=== PATIENT | female | born 1995 | race Caucasian/White ===

== ENCOUNTER → 2022-05-18 14:04 | Outpatient (CLI) | payer OTHER, SELFPAY | PROVIDERS: PCP Family Medicine; Visit Provider Emergency Medicine | DX: Z20.822 Contact with and (suspected) exposure to COVID-19 (principal) | CPT/HCPCS: C9803; U0003; U0005 ==

== ENCOUNTER 2022-07-20 18:24 | Emergency (ER) | payer OTHER, SELFPAY ==
[2022-07-20 18:24] VITALS: BP 106/73; PULSE 94; RESP 20; TEMP 36.7; O2SAT 100; BMI 24.9
[2022-07-20 18:48] VITALS: BMI 24.9
--- NOTE | 2022-07-20 18:49 | XR_ITS ---
PROCEDURE INFORMATION: Exam: XR Chest Exam date and time: 07/20/2022 7:09 PM Age: 27 years old Clinical indication: Condition or disease; Patient HX: Drug overdose. ; Additional info: Od TECHNIQUE: Imaging protocol: Radiologic exam of the chest. Views: 1 view. Portable AP supine exam 7:12 p.m. COMPARISON: No relevant prior studies available. FINDINGS: Tubes, catheters and devices: Overlying residential monitor electrodes. Lungs: Mild hypoventilation/low lung volumes on this exam, with mild infrahilar bronchovascular crowding. No focal consolidation. Pulmonary vessels do not appear congested. Pleural spaces: Unremarkable. No significant pleural effusion. No pneumothorax. Heart/Mediastinum: The cardiac silhouette is normal. Bones/joints: There is no evidence of acute fracture. IMPRESSION: 1. Mild hypoventilation/low lung volumes. 2. No focal consolidation or vascular congestion.
--- NOTE | 2022-07-20 18:53 | PC.NURSE ---
PT STATES SHE WAS TRYING TO KILL HERSELF (LEFT A NOTE) SHE FOUND OUT HER BOYFRIEND HAS A BEING WITH ANOTHER GIRL , SHE SAID IT WOULD BE EASIER TO JUST . SHE STATES SHE TOOK LORAZEPAM 1 MG TOOK X10 PILLS , REMERON 15MG TOOK X3 PILLS SHE TOOK THEM AT 1615. CALLED AND SPOKE WITH SHEREE AT [facility] CONTR[facility] SHE SAID NO TREATMENT EXCEPT FOR SYMPTOMS THAT OCCUR WATCH FOR H/A, HYPOTENSION, TACHY ,LONG QT, POLISHING PAD MOUNTER DEPRESSION . PT NEEDS TO BE WATCHED UNTIL 1230AM . SHE WILL KEEP IN CONTACT THROUGH THE NIGHT
--- NOTE | 2022-07-20 19:08 | ECG_ITS ---
APPROVED REPORT Exam: Resting ECG HR:90 bpm ECG Measurements Heart Rate 90 AXES ND 167 P 68 QRSd 89 QRS 72 QT 363 T 60 QTc 411 Conclusion SINUS RHYTHM NORMAL ECG UNCONFIRMED REPORT Electronically signed by : Favio Aly MD 07/21/2022 21:16:56
[2022-07-20 19:17] LABS: Basophils # 0.1 K/mm3 (0-0.2); Basophils % 0.6 % (0.1-2.0); Eosinophils % 0.3 % (0.1-12.0); Hematocrit 45.9 % (37.0-47.0); Lymphocytes # 1.9 K/mm3 (0.7-4.5); Mean Corpuscular HGB Conc 32.7 g/dL (31.8-35.4); Mean Corpuscular Hemoglobin 27.9 pg (27.0-31.2); Mean Corpuscular Volume 85.1 fl (81-99); Mean Platelet Volume 8.9 fl (7.4-10.4); Monocytes # 0.4 K/mm3 (0.1-1.0); Monocytes % 4.2 % (1.7-9.3); Neutrophils # 6.7 K/mm3 (1.8-7.8); Platelet Count 375 K/mm3 (142-424); Red Blood Count 5.39 M/mm3 (4.20-5.40); Red Cell Distribution Width 14.3 % (11.5-17.5)
[2022-07-20 19:23] LABS: Chloride 102 mmol/L (98-107); Sodium 142 mmol/L (136-145)
[2022-07-20 19:24] LABS: Potassium 4.1 mmoL/L (3.5-5.1)
[2022-07-20 19:26] LABS: Alanine Aminotransferase 38 U/L (12-78); Alkaline Phosphatase 132 U/L (38-126); Anion Gap 20.1 mEq/L (5-15); Aspartate Amino Transferase 39 U/L (14-36); Bilirubin,Total 0.3 mg/dl (0.2-1.3); Blood Urea Nitrogen 3 mg/dl (7-17); Carbon Dioxide 24 mmol/L (22.0-30.0); Creatinine Clearance Estimated 123 mL/min (50-200); Estimated Glomerular Filt Rate 99 ml/min (>60); GFR (African American) 120 ML/MIN (>60); Glucose 82 mg/dl (74-100)
[2022-07-20 19:27] LABS: Albumin/Globulin Ratio 1.2 (1.1-1.8); Globulin 4.2 g/dL (1.3-3.2); Total Protein,Serum 9.2 g/dl (6.3-8.2)
[2022-07-20 19:35] LABS: Acetaminophen < 10 ug/ml (10-30); Salicylate < 1.0 mg/dL (2.0-20.0)
[2022-07-20 19:53] LABS: Urine Pregnancy, HCG Qual. Negative (Negative)
[2022-07-20 19:54] LABS: Amphetamine/Metha Screen,Urine Negative ng/ml (<1000); Barbiturates Screen,Urine Negative ng/ml (<200)
[2022-07-20 19:55] LABS: Benzodiazepines Screen,Urine Negative ng/ml (<200)
[2022-07-20 19:56] LABS: Cannabinoid Screen,Urine Negative ng/ml (<50); Cocaine Screen,Urine Negative ng/ml (<300)
[2022-07-20 19:57] LABS: Methadone Screen,Urine Negative ng/ml (<300)
[2022-07-20 19:58] LABS: Opiate Screen,Urine Negative ng/ml (<300); Phencyclidine Screen,Urine Negative ng/ml (<25)
[2022-07-20 20:29] LABS: Microscopic, Urine URINE MICROSCOPIC (MICROSCOPIC)
[2022-07-20 20:41] LABS: Appearance,Urine CLEAR (Clear); Bilirubin,Urine Negative (Negative); Blood, Urine Negative (Negative); Color,Urine YELLOW (Yellow); Glucose,Urine (UA) Negative (Negative); Ketones,Urine Negative (Negative); Leukocyte Esterase,Urine Negative (Negative); Nitrate,Urine Negative (Negative); PH,Urine 6.5 (5.0-8.5); Protein,Urine Negative (Negative); Urobilinogen,Urine 0.2 EU/dl (0.2)
--- NOTE | 2022-07-20 20:41 | PC.NURSE ---
s/w [facility], gave update on labs and EKG
[2022-07-20 20:56] LABS: Ethyl Alcohol < 10 mg/dl (0-10)
[2022-07-20 21:10] LABS: Bacteria,Urine Trace /lpf; Sperm,Urine OCC /lpf; WBC,Urine Occasional #/hpf (0-3)
[2022-07-20 21:11] LABS: Yeast,Urine Occasional /lpf
--- NOTE | 2022-07-20 21:52 | PC.NURSE ---
F/C REMOVED BY USHA RN,700ML CLEAR YELLOW URINE
--- NOTE | 2022-07-20 22:19 | HMH.EDOD ---
Discharge Plan Disposition Patient Disposition: Home, Self-Care Condition: Good Prescriptions Prescriptions: No Action polyethylene glycol 3350 17 gram/dose powder 17 g PO Label Comments: DISSOLVE 17 GM (1 CAPFUL) IN 4-8 OZ OF LIQUID ONCE DAILY NEEDED albuterol sulfate 90 mcg/actuation HFA aerosol inhaler 2 puff INHALATION Q4-6H PRN hydroxyzine HCl 25 mg tablet 25 mg PO HS PRN lorazepam 1 mg tablet 1 mg PO HS PRN (Reason: anxiety) Qty: 30 2RF Rx Instructions: use sparingly when possible mirtazapine [Remeron] 15 mg tablet 15 mg PO DAILY Qty: 90 3RF penicillin V potassium 500 mg tablet 500 mg PO TID Qty: 30 0RF Referrals Follow up/Referrals: Ryan Bojorquez MD [Primary Care Provider] - See instructions Clinical Impressions Clinical Impression: Depression, Intentional overdose Instructions Patient Instructions: DI for Drug Overdose in Adults Discharge ED Provider: Davis Guerrero Overdose HPI General Chief Complaint: Overdose Stated Complaint: overdose Time Seen by Provider: 07/20/22 20:30 Mode of Arrival: EMS Source of Information: Patient, EMS and Medical Record Limitations: No Limitations Description of Symptoms (Recalled from ER Triage Doc. by RN): c/o suicide attempt by taking her prescribed antidepressants (lorazapam 10mg x10 and mirtazapine 15mg x3 ) today around 4pm. Pt states that her boyfriend was cheating on her and she thought it would be better to than to deal with an affair. A family memeber found pt and called EMS. History of Present Illness HPI Narrative: pt upset and took meds as noted above - pt with feeling depressed about boyfriend - complaint: intentional overdose Onset (ago): hour(s) Timing confirmed by: family member Intent: suicide attempt How Overdose Was Discovered: left note and family/friend present at time Context: Intentional Overdose: relationship problems Treatments Prior to Arrival: none Related Data Home Medications Medication Instructions Recorded Confirmed albuterol sulfate 90 mcg/actuation 2 puff inhalation Q4-6H PRN 05/31/21 04/08/22 aerosol inhaler polyethylene glycol 3350 17 17 g PO 05/31/21 04/08/22 gram/dose oral powder hydroxyzine HCl 25 mg tablet 25 mg PO HS PRN 04/08/22 04/08/22 Previous Rx's Medication Instructions Recorded lorazepam 1 mg tablet 1 mg PO HS PRN anxiety #30 tabs 04/08/22 mirtazapine 15 mg tablet (Remeron) 15 mg PO DAILY #90 tabs 04/08/22 penicillin V potassium 500 mg 500 mg PO TID #30 tabs 04/08/22 tablet Allergies Allergy/AdvReac Type Severity Reaction Status Date / Time NSAIDS (Non-Steroidal AdvReac Verified 04/08/22 14:04 Anti-Inflamma PFSH PFSH Social History Smoking Status: Current every day smoker tobacco type: cigarettes alcohol intake: never substance use type: denies use current occupational status: employed Travel in the last 8 weeks: None ROS Obtained: Yes All systems reviewed & no additional complaints except as documented Physical Exam General General appearance: alert Head Head exam: normocephalic Eye Eye exam: Present PERRL and EOMI ENT ENT exam: Present mucous membranes moist Neck Neck exam: Present trachea midline Respiratory Respiratory exam: Present normal lung sounds bilaterally; Absent respiratory distress Cardiovascular Cardiovascular exam: Present regular rate Abdominal Exam Abdominal exam: Present soft Extremities Exam Extremities exam: Present full ROM Neurological Exam Neurological exam: Present alert, oriented X3 and CN II-XII intact Psychiatric Psychiatric exam: Present anxious; Absent suicidal ideation Skin Skin exam: Absent rash Medical Decision Making Medical Records Medical records reviewed: Yes I reviewed the patient's medical records. Dionisio Inquiry Pt receiving controlled substance: No Vital Signs: 07/20/22 18:24 07/21/22 00:10 Temperature 98.1 F 98 F Temperature Source Oral Or
[2022-07-21 00:10] VITALS: BP 110/75; PULSE 88; RESP 18; TEMP 36.6; O2SAT 99
== END 2022-07-21 00:10 | disposition home or self-care (01) ==
PROVIDERS: Emergency Medicine; Emergency Provider Emergency Medicine; PCP Family Medicine
DX: T42.4X2A Poisoning by benzodiazepines, intentional self-harm, initial encounter (principal); R45.851 Suicidal ideations; F41.9 Anxiety disorder, unspecified; F17.210 Nicotine dependence, cigarettes, uncomplicated; Z79.51 Long term (current) use of inhaled steroids; Z88.6 Allergy status to analgesic agent
CPT/HCPCS: 51702; 71045; 80053; 80305; 80329; 81001; 81025; 83735; 85025; 93005; 96360; 99285

== ENCOUNTER → 2022-09-05 10:00 | Outpatient (CLI) | payer OTHER, SELFPAY ==
[2022-09-05 13:19] LABS: Coronavirus 19, PCR Not Detected (NotDetected); Influenza A, PCR Not Detected (NotDetected); Influenza B, PCR Not Detected (NotDetected)
== END ==
PROVIDERS: PCP Family Medicine; Visit Provider Family Medicine
DX: R05.9 Cough, unspecified (principal)
CPT/HCPCS: C9803; U0003; U0005

== ENCOUNTER 2022-09-23 21:39 | Emergency (ER) | payer OTHER, SELFPAY ==
[2022-09-23 21:40] VITALS: BP 148/75; PULSE 92; RESP 19; TEMP 36.4; O2SAT 100; BMI 27.4
--- NOTE | 2022-09-23 21:53 | CT_ITS ---
PROCEDURE INFORMATION: Exam: CT Abdomen And Pelvis With Contrast Exam date and time: 09/23/2022 10:19 PM Age: 27 years old Clinical indication: Abdominal pain TECHNIQUE: Imaging protocol: Computed tomography of the abdomen and pelvis with contrast. Radiation optimization: All CT scans at this facility use at least one of these dose optimization techniques: automated exposure control; mA and/or kV adjustment per patient size (includes targeted exams where dose is matched to clinical indication); or iterative reconstruction. Contrast material: ISOVUE; Contrast volume: 75 ml; Contrast route: IV; COMPARISON: CR XR CHEST PORTABLE 07/20/2022 7:09 PM FINDINGS: Lungs: No acute finding. Liver: Normal. No mass. Gallbladder and bile ducts: The gallbladder is contracted. There is no biliary ductal dilation. Pancreas: Normal. No ductal dilation. Spleen: There are numerous subcentimeter hypodensities within the spleen which are too small to characterize. Adrenal glands: Normal. No mass. Kidneys and ureters: Normal. No hydronephrosis. Stomach and bowel: Unremarkable. No obstruction. No mucosal thickening. Appendix: No evidence of appendicitis. Intraperitoneal space: Unremarkable. No free air. No significant fluid collection. Vasculature: There are prominent para uterine veins bilaterally with prominence of both ovarian veins. These findings can be seen in pelvic congestion syndrome. Lymph nodes: Unremarkable. No enlarged lymph nodes. Urinary bladder: Unremarkable as visualized. Reproductive: See Vasculature finding. Bones/joints: Unremarkable. No acute fracture. Soft tissues: A small fat containing umbilical hernia is noted. IMPRESSION: 1. There is no acute process within the abdomen or pelvis. 2. Prominent bilateral parauterine and ovarian veins. The findings can be seen in pelvic congestion syndrome. 3. Numerous subcentimeter splenic hypodensities which are indeterminate. For patients without or with history of cancer, recommend follow-up MRI in 6-12 months. Reference: White Paper: Managing Incidental Findings on Abdominal/Pelvic CT/MRI, Part 3: Splenic and Manoj Findings, JACR, July 2013. 4. Other findings as detailed.
[2022-09-23 21:56] LABS: Microscopic, Urine URINE MICROSCOPIC (MICROSCOPIC)
[2022-09-23 21:59] LABS: Appearance,Urine CLEAR (Clear); Bilirubin,Urine Negative (Negative); Blood, Urine Negative (Negative); Color,Urine YELLOW (Yellow); Glucose,Urine (UA) Negative (Negative); Ketones,Urine TRACE (Negative); Leukocyte Esterase,Urine Negative (Negative); Nitrate,Urine Negative (Negative); Protein,Urine Negative (Negative); Specific Gravity, Urine >= 1.030 (1.005-1.030); Urobilinogen,Urine 0.2 EU/dl (0.2)
[2022-09-23 22:02] LABS: Urine Pregnancy, HCG Qual. Negative (Negative)
[2022-09-23 22:03] LABS: Basophils % 0.4 % (0.1-2.0); Eosinophils # 0.1 K/mm3 (0.0-0.4); Eosinophils % 2.4 % (0.1-12.0); Hematocrit 39.2 % (37.0-47.0); Lymphocytes # 1.4 K/mm3 (0.7-4.5); Mean Corpuscular HGB Conc 33.2 g/dL (31.8-35.4); Mean Corpuscular Hemoglobin 27.1 pg (27.0-31.2); Mean Corpuscular Volume 81.8 fl (81-99); Monocytes # 0.3 K/mm3 (0.1-1.0); Monocytes % 5.1 % (1.7-9.3); Neutrophils # 4.2 K/mm3 (1.8-7.8); Neutrophils % 69.1 % (37.0-80.0); Platelet Count 299 K/mm3 (142-424); Red Cell Distribution Width 14.3 % (11.5-17.5)
[2022-09-23 22:08] LABS: Alanine Aminotransferase 15 U/L (12-78); Albumin Level 4.4 g/dl (3.5-5.0); Albumin/Globulin Ratio 1.3 (1.1-1.8); Alkaline Phosphatase 82 U/L (38-126); Amylase 71 U/L (30-110); Anion Gap 10.8 mEq/L (5-15); Aspartate Amino Transferase 26 U/L (14-36); Bilirubin,Total 0.2 mg/dl (0.2-1.3); Blood Urea Nitrogen 7 mg/dl (7-17); Calcium 8.8 mg/dl (8.4-10.2); Carbon Dioxide 23 mmol/L (22.0-30.0); Chloride 108 mmol/L (98-107); Creatinine Clearance Estimated 136 mL/min (50-200); Estimated Glomerular Filt Rate 99 ml/min (>60); GFR (African American) 120 ML/MIN (>60); Globulin 3.5 g/dL (1.3-3.2); Glucose 113 mg/dl (74-100); Lipase 95 U/L (23-300); Potassium 3.8 mmoL/L (3.5-5.1); Sodium 138 mmol/L (136-145); Total Protein,Serum 7.9 g/dl (6.3-8.2)
--- NOTE | 2022-09-23 22:14 | PC.NURSE ---
Pt gone to RAD via wheelchair
[2022-09-23 22:22] LABS: Calcium Oxalate Crystals,Urine 4+ /lpf; Mucus,Urine Trace /lpf
--- NOTE | 2022-09-23 22:22 | PC.NURSE ---
Pt back from RAD
--- NOTE | 2022-09-23 22:23 | HMH.EDABDPAI ---
Discharge Plan Disposition Patient Disposition: Home, Self-Care Chief Complaint: Abdominal Pain Prescriptions Prescriptions: No Action mirtazapine 15 mg tablet 15 mg PO DAILY Referrals Follow up/Referrals: Ryan Bojorquez MD [Primary Care Provider] - See instructions Clinical Impressions Clinical Impression: Abdominal pain Instructions Patient Instructions: DI for Acute Abdominal Pain Discharge ED Provider: Davis Guerrero Abdominal Pain HPI General Chief Complaint: Abdominal Pain Stated Complaint: abd pain, lower back pain Time Seen by Provider: 09/23/22 22:23 Mode of Arrival: Ambulatory Source of Information: Patient and Medical Record Limitations: No Limitations Description of Symptoms (Recalled from ER Triage Doc. by RN): Patient reports low back pain x2 weeks that now radiates to her lower abdomen. Reports diarrhea without N/V, fever, or chills. Patient states this just keeps getting worse. History of Present Illness HPI narrative: progressive lower abd pain with rad to back over the last 2 weeks complaint: abdominal pain Onset (ago): day(s) Consistency: intermittent Severity: moderate Associated symptoms: denies other symptoms Related Data Home Medications Medication Instructions Recorded Confirmed mirtazapine 15 mg tablet 15 mg PO DAILY Depression 09/23/22 09/23/22 Allergies Allergy/AdvReac Type Severity Reaction Status Date / Time NSAIDS (Non-Steroidal Allergy Mild itching Verified 09/23/22 22:02 Anti-Inflamma [facility] Disclaimer: The information contained in this section may have been updated after the patient was seen, as this information can be updated by other users. Social History Smoking Status: Current every day smoker tobacco type: cigarettes alcohol intake: never substance use type: denies use current occupational status: employed Travel in the last 8 weeks: None ROS Obtained: Yes All systems reviewed & no additional complaints except as documented Physical Exam General General appearance: alert Head Head exam: normocephalic Eye Eye exam: Present PERRL and EOMI ENT ENT exam: Present mucous membranes moist Neck Neck exam: Present trachea midline Respiratory Respiratory exam: Present normal lung sounds bilaterally; Absent respiratory distress Cardiovascular Cardiovascular exam: Present regular rate Abdominal Exam Abdominal exam: Present soft and tenderness; Absent guarding or rebound Abdominal tenderness: Present suprapubic and moderate Extremities Exam Extremities exam: Present full ROM Back Exam Back exam: Absent CVA tenderness (L) Neurological Exam Neurological exam: Present alert, oriented X3 and CN II-XII intact Psychiatric Psychiatric exam: Present normal affect Skin Skin exam: Absent rash Medical Decision Making Medical Records Medical records reviewed: Yes I reviewed the patient's medical records. Dionisio Inquiry Pt receiving controlled substance: No Vital Signs: 09/23/22 21:40 Temperature 97.5 F L Temperature Source Oral Pulse Rate [Right] 92 H Respiratory Rate 19 Blood Pressure [Left Arm] 148/75 H Blood Pressure Mean [Left Arm] 99 02 Sat by Pulse Oximetry 100 Oxygen Delivery Method Room Air Lab Data Lab results reviewed: Yes I reviewed the patient's lab results. Lab Results 09/23/22 21:44: Urine Color Yellow, Urine Appearance Clear, Urine pH 6.0, Ur Specific Bridgman >= 1.030, Urine Protein Negative, Urine Glucose (UA) Negative, Urine Ketones Trace, Urine Blood Negative, Urine Nitrate Negative, Urine Bilirubin Negative, Urine Urobilinogen 0.2, Ur Leukocyte Esterase Negative, Urine RBC None, Urine WBC None, Ur Squamous Epith Cells 3-5, Calcium Oxalate Crystal 4+, Urine Bacteria None, Urine Mucus Trace 09/23/22 21:44: Urine HCG, Qual Negative 09/23/22 21:47: WBC 6.0, RBC 4.80, Hgb 13.0, Hct 39.2, MCV 81.8, MCH 27.1, MCHC 33.2, RDW 14.3, Plt Count 299, MPV 8.0,
--- NOTE | 2022-09-23 22:40 | PC.NURSE ---
Rechecked pt condition. Pt advised that she was still in pain. RN notified. Pt provided with blanket.
[2022-09-23 23:24] VITALS: BP 137/78; PULSE 90; RESP 18; TEMP 36.4; O2SAT 100
== END 2022-09-23 23:40 | disposition home or self-care (01) ==
PROVIDERS: Emergency Provider Emergency Medicine; PCP Family Medicine
DX: R10.30 Lower abdominal pain, unspecified (principal); M54.50 Low back pain, unspecified; F17.210 Nicotine dependence, cigarettes, uncomplicated
CPT/HCPCS: 74177; 80053; 81001; 81025; 82150; 83690; 85025; 96361; 96374; 96375; 99285; Q9967

== ENCOUNTER 2022-10-16 23:18 | Emergency (ER) | payer OTHER, SELFPAY ==
[2022-10-16 23:19] VITALS: BP 118/70; PULSE 90; RESP 18; TEMP 36.4; O2SAT 98; BMI 26.7
--- NOTE | 2022-10-16 23:23 | XR_ITS ---
PROCEDURE INFORMATION: Exam: XR Left Foot Exam date and time: 10/16/2022 11:23 PM Age: 27 years old Clinical indication: Pain; Foot; Left; Additional info: Injury TECHNIQUE: Imaging protocol: Radiologic exam of the Left foot. Views: 3 or more views. COMPARISON: No relevant prior studies available. FINDINGS: Bones/joints: Osseous alignment is normal. No acute fracture or arthritic change. There is minimal plantar calcaneal spurring Soft tissues: Normal. IMPRESSION: No acute fracture
[2022-10-17 00:41] VITALS: BP 135/79; PULSE 85; RESP 18; TEMP 36.8; O2SAT 98
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
== END 2022-10-17 01:01 | disposition home or self-care (01) ==
PROVIDERS: Emergency Provider Emergency Medicine; PCP Family Medicine
DX: S99.922A Unspecified injury of left foot, initial encounter (principal); F17.210 Nicotine dependence, cigarettes, uncomplicated; Y03.0XXA Assault by being hit or run over by motor vehicle, initial encounter
CPT/HCPCS: 73630; 96372; 99283; 99284

== ENCOUNTER 2023-06-11 16:17 | Emergency (ER) | payer OTHER, SELFPAY ==
[2023-06-11] VITALS (7 sets, daily range): BP systolic 118–132; BP diastolic 83–97; PULSE 69–80; RESP 18–20; TEMP 36.7–37.1; O2SAT 92–100; BMI 24.3
[2023-06-11 17:00] LABS: Microscopic, Urine URINE MICROSCOPIC (MICROSCOPIC)
[2023-06-11 17:02] LABS: Basophils % 0.3 % (0.1-2.0); Eosinophils # 0.1 K/mm3 (0.0-0.4); Eosinophils % 0.6 % (0.1-12.0); Hemoglobin 14.6 g/dL (12.2-16.2); Lymphocytes # 1.7 K/mm3 (0.7-4.5); Mean Corpuscular HGB Conc 32.5 g/dL (31.8-35.4); Mean Corpuscular Hemoglobin 26.2 pg (27.0-31.2); Mean Corpuscular Volume 80.7 fl (81-99); Mean Platelet Volume 8.1 fl (7.4-10.4); Monocytes # 0.4 K/mm3 (0.1-1.0); Monocytes % 3.9 % (1.7-9.3); Neutrophils # 8.9 K/mm3 (1.8-7.8); Neutrophils % 80.3 % (37.0-80.0); Platelet Count 329 K/mm3 (142-424); Red Blood Count 5.58 M/mm3 (4.20-5.40); Red Cell Distribution Width 13.9 % (11.5-17.5); White Blood Count 11.1 K/mm3 (4.8-10.8)
[2023-06-11 17:03] LABS: Appearance,Urine CLEAR (Clear); Bilirubin,Urine Negative (Negative); Blood, Urine Negative (Negative); Color,Urine YELLOW (Yellow); Glucose,Urine (UA) Negative (Negative); Ketones,Urine Negative (Negative); Leukocyte Esterase,Urine TRACE (Negative); Nitrate,Urine Negative (Negative); Protein,Urine Negative (Negative); Urobilinogen,Urine 0.2 EU/dl (0.2)
[2023-06-11 17:05] LABS: Chloride 107 mmol/L (98-107); Potassium 3.7 mmoL/L (3.5-5.1); Sodium 139 mmol/L (136-145)
[2023-06-11 17:07] LABS: Alanine Aminotransferase 18 U/L (12-78); Alkaline Phosphatase 76 U/L (38-126); Aspartate Amino Transferase 29 U/L (14-36); Bilirubin,Total 0.2 mg/dl (0.2-1.3); Blood Urea Nitrogen 5 mg/dl (7-17); Creatinine Clearance Estimated 105 mL/min (50-200); Estimated Glomerular Filt Rate 84 ml/min (>60); GFR (African American) 102 ML/MIN (>60)
[2023-06-11 17:08] LABS: Albumin Level 4.7 g/dl (3.5-5.0); Albumin/Globulin Ratio 1.1 (1.1-1.8); Anion Gap 14.7 mEq/L (5-15); Calcium 9.5 mg/dl (8.4-10.2); Carbon Dioxide 21 mmol/L (22.0-30.0); Globulin 4.2 g/dL (1.3-3.2); Glucose 60 mg/dl (74-100); Lipase 80 U/L (23-300); Total Protein,Serum 8.9 g/dl (6.3-8.2)
[2023-06-11 17:09] LABS: Lactic Acid 1.4 mmol/L (0.7-2.1)
--- NOTE | 2023-06-11 17:12 | PC.NURSE ---
Dr. Kingston at BS for pt eval
--- NOTE | 2023-06-11 17:13 | CT_ITS ---
PROCEDURE INFORMATION: Exam: CT Abdomen And Pelvis With Contrast Exam date and time: 06/11/2023 5:38 PM Age: 28 years old Clinical indication: Abdominal pain; Localized; Right lower quadrant (rlq); Prior surgery; Surgery date: 6+ months; Surgery type: Tubal ligation; Additional info: Rlq abd pain TECHNIQUE: Imaging protocol: Computed tomography of the abdomen and pelvis with contrast. Radiation optimization: All CT scans at this facility use at least one of these dose optimization techniques: automated exposure control; mA and/or kV adjustment per patient size (includes targeted exams where dose is matched to clinical indication); or iterative reconstruction. Contrast material: ISOVUE; Contrast volume: 75 ml; Contrast route: IV; REPORTING DATA: Count of CT and Cardiac NM exams in prior 12 months: This patient has received [address] and 0 known cardiac nuclear medicine studies in the 12 months prior to the current study. COMPARISON: CT ABDOMEN PELVIS W CON 09/23/2022 10:19 PM FINDINGS: Liver: Normal. No mass. Gallbladder and bile ducts: Normal. No calcified stones. No ductal dilation. Pancreas: Normal. No ductal dilation. Spleen: Normal. No splenomegaly. Adrenal glands: Normal. No mass. Kidneys and ureters: Normal. No hydronephrosis. Stomach and bowel: Fluid throughout the small bowel and colon compatible with nonspecific diarrheal illness. No bowel wall thickening or evidence of bowel obstruction. Appendix: No evidence of appendicitis. Intraperitoneal space: Minimal free fluid in the pelvis. No free air. Vasculature: Unremarkable. No abdominal aortic aneurysm. Lymph nodes: Unremarkable. No enlarged lymph nodes. Urinary bladder: Unremarkable as visualized. Reproductive: Unremarkable as visualized. Bones/joints: Unremarkable. No acute fracture. Soft tissues: Unremarkable. IMPRESSION: Fluid throughout small bowel and colon compatible diarrheal illness such as gastroenteritis. No evidence of bowel obstruction. No evidence of appendicitis.
--- NOTE | 2023-06-11 17:13 | HMH.EDGENADL ---
Discharge Plan Disposition Patient Disposition: Home, Self-Care Prescriptions Prescriptions: New dicyclomine 20 mg tablet 20 mg PO TID PRN (Reason: abdominal pain or spasm) 7 Days Qty: 21 0RF ondansetron 4 mg tablet,disintegrating 4 mg PO Q6H PRN (Reason: nausea and vomiting) 5 Days Qty: 20 0RF No Action mirtazapine 15 mg tablet 15 mg PO DAILY Referrals Follow up/Referrals: Ryan Bojorquez MD [Primary Care Provider] - See instructions Activity Restrictions/Add. Instructions Additional Instructions/Restrictions: IllnessYour emergency evaluation was unremarkable your CT scan however did show fluid-filled bowel which is most likely consistent with a diarrheal illness. Bentyl as well as Zofran have been prescribed. Please push oral fluids and return to the emergency part with any worsening of her symptoms. Clinical Impressions Clinical Impression: Abdominal pain, Nausea & vomiting Instructions Patient Instructions: DI for Acute Abdominal Pain Discharge ED Provider: Latricia Kingston General Adult HPI General Chief complaint: Abdominal Pain Stated complaint: abd pain Time Seen by Provider: 06/11/23 17:10 Mode of Arrival: Wheelchair Source of Information: Patient Limitations: No Limitations Description of Symptoms (Recalled from ER Triage Doc. by RN): PT REPORTS GRADUAL ONSET OF RLQ PAIN, WORSENED OVER 2 HOURS. REPORTS NAUSEA, LOOSE BM YESTERDAY. DENIES FEVER. History of Present Illness HPI narrative: Patient is a 28-year-old female presenting with sudden right lower quadrant abdominal pain which began 2 hours ago. States she felt fine 3 hours ago. She does have a history of kidney stones but states this feels very different. Last menstrual period was 1 week ago when she states has been regular. No vaginal bleeding vaginal discharge no urinary symptoms no hematuria. No history of ovarian cysts or ovarian torsion no history of appendicitis. No fevers or chills patient denies other significant past medical history including any drug use. However she was in our emergency department several months ago for an overdose. Related Data Home Medications Medication Instructions Recorded Confirmed mirtazapine 15 mg tablet 15 mg PO DAILY Depression 09/23/22 10/16/22 Previous Rx's Medication Instructions Recorded dicyclomine 20 mg tablet 20 mg PO TID PRN abdominal pain or 06/11/23 spasm 7 days #21 tabs ondansetron 4 mg disintegrating 4 mg PO Q6H PRN nausea and 06/11/23 tablet vomiting 5 days #20 tabs Allergies Allergy/AdvReac Type Severity Reaction Status Date / Time No Known Allergies Allergy Verified 10/16/22 23:26 [facility] Disclaimer: The information contained in this section may have been updated after the patient was seen, as this information can be updated by other users. Social History Smoking Status: Current every day smoker tobacco type: cigarettes alcohol intake: never substance use type: denies use current occupational status: employed Travel in the last 8 weeks: None ROS Obtained: Yes All systems reviewed & no additional complaints except as documented Physical Exam General General appearance: in distress (In pain) Respiratory Respiratory exam: Present normal lung sounds bilaterally Cardiovascular Cardiovascular exam: Present regular rate; Absent tachycardia Abdominal Exam Abdominal exam: Present other (Right lower quadrant tenderness palpation there is some mild rebound and guarding no tenderness elsewhere in the abdomen) Neurological Exam Neurological exam: Present alert and oriented X3 Medical Decision Making Dionisio Inquiry Pt receiving controlled substance: No Vital Signs: 06/11/23 16:18 06/11/23 16:30 06/11/23 17:00 Temperature 98.0 F Temperature Source Oral Pulse Rate 72 70 Pulse Rate [Radial] 72 Respiratory Rate 18 20 20 Blood Pressure 130/85 120/84 Blood Pressure [Right Arm]
--- NOTE | 2023-06-11 17:18 | PC.NURSE ---
pt up to restroom
[2023-06-11 17:21] LABS: Urine Pregnancy, HCG Qual. Negative (Negative)
[2023-06-11 17:46] LABS: WBC,Urine Occasional #/hpf (0-3)
--- NOTE | 2023-06-11 18:24 | PC.NURSE ---
Rounded on pt. No needs or complaints voiced at this time. Call light within reach.
--- NOTE | 2023-06-11 18:37 | PC.NURSE ---
Pt ambulatory to bathroom and back to bed
== END 2023-06-11 19:38 | disposition home or self-care (01) ==
PROVIDERS: Emergency Provider Student in an Organized Health Care Education/Training Program; PCP Family Medicine
DX: R10.31 Right lower quadrant pain (principal); R19.7 Diarrhea, unspecified; R11.0 Nausea; F17.210 Nicotine dependence, cigarettes, uncomplicated
CPT/HCPCS: 74177; 80053; 81001; 81025; 83605; 83690; 85025; 96361; 96374; 96375; 99285; J2405; Q9967

== ENCOUNTER → 2023-06-29 15:19 | Outpatient (CLI) | payer OTHER, SELFPAY ==
[2023-07-01 09:12] LABS: Rapid Plasma Reagin Ab Titer Non Reactive titer (NonRea<1:1)
[2023-07-03 09:37] LABS: HIV Screen 4th Generation wRfx Non Reactive; Hepatitis B Surface Antigen Negative; Hepatitis C Antibody Non Reactive
== END ==
PROVIDERS: PCP Nurse Practitioner; Visit Provider Obstetrics & Gynecology
DX: Z72.51 High risk heterosexual behavior (principal)
CPT/HCPCS: 36415; 86593; 86703; 87340; 87380; G0432

== ENCOUNTER 2024-03-28 10:37 | Emergency (ER) | payer OTHER, SELFPAY ==
--- NOTE | 2024-03-28 10:42 | XR_ITS ---
FINAL REPORT CLINICAL HISTORY: hyperventilation, panic attack, chest pain and tightness FINDINGS: No acute pulmonary opacity is present. There is no evidence of effusion or pneumothorax. Mediastinum is unremarkable. Heart size is normal. IMPRESSION: No acute abnormality. Authenticated and ERN
[2024-03-28 10:44] VITALS: BP 148/104; PULSE 80; RESP 21; TEMP 37; O2SAT 100; BMI 27.4
--- NOTE | 2024-03-28 10:44 | CT_ITS ---
FINAL REPORT CLINICAL HISTORY: L mandiublar swelling and trisums COMPARISON: None FINDINGS: CT SINUSES TECHNIQUE: Thin section axial CT with coronal and sagittal reconstructions. This study was performed with techniques to keep radiation doses as low as reasonably achievable, (ALARA). Individualized dose reduction techniques using automated exposure control or adjustment of mA and/or kV according to the patient's size were employed. Sinuses are clear. No fluid levels are seen within the paranasal sinuses . Osteomeatal complexes are clear . There is no mandibular/maxillary bony destruction. There is no evidence of abscess. There is mild adenopathy in the submandibular regions, likely reactive. Nasal septum is midline . IMPRESSION: No obvious changes of osteomyelitis or abscess. Reviewed, Interpreted and Dictated by Marbella Rascon MD Transcribed by Lilly Centeno Authenticated and [facility]
--- NOTE | 2024-03-28 10:44 | CT_ITS ---
FINAL REPORT CLINICAL HISTORY: recent dental work, pain with swallowing COMPARISON: None FINDINGS: CT NECK WITH CONTRAST TECHNIQUE: Axial CT with IV contrast administration. This study was performed with techniques to keep radiation doses as low as reasonably achievable, (ALARA). Individualized dose reduction techniques using automated exposure control or adjustment of mA and/or kV according to the patient''s size were employed. FINDINGS: There is mild adenopathy in the submandibular regions and left jugular chain considered to be reactive. . Salivary glands are normal. Larynx is unremarkable. Thyroid gland is unremarkable. There is no abscess. IMPRESSION: Mild adenopathy favored to be reactive. No abscess. Reviewed, Interpreted and Dictated by Marbella Rascon MD Transcribed by Lilly Centeno Authenticated and [facility]
[2024-03-28 10:48] LABS: VBG Base Excess -7.9 mmol/L (-2.4-2.3); VBG HCO3 15.3 mmol/L (23-30); VBG Oxygen Saturation 53.6 % (50-70); VBG PO2 24.4 mmol/L (28-40)
[2024-03-28 10:50] LABS: Lactate Venous 2.6 mmol/L (0.4-2.0); VBG PCO2 20.3 mmol/L (35-51)
[2024-03-28 10:50] LABS: Basophils # 0.2 K/mm3 (0-0.2); Basophils % 1.8 % (0.1-2.0); Eosinophils # 0.2 K/mm3 (0.0-0.4); Eosinophils % 1.3 % (0.1-12.0); Hemoglobin 14.9 g/dL (12.2-16.2); Lymphocytes # 1.6 K/mm3 (0.7-4.5); Lymphocytes % 14.8 % (10-50); Mean Corpuscular HGB Conc 33.9 g/dL (31.8-35.4); Mean Corpuscular Hemoglobin 26.4 pg (27.0-31.2); Mean Corpuscular Volume 77.8 fl (81-99); Monocytes # 0.8 K/mm3 (0.1-1.0); Neutrophils # 8.4 K/mm3 (1.8-7.8); Neutrophils % 75.1 % (37.0-80.0); Platelet Count 366 K/mm3 (142-424); Red Blood Count 5.66 M/mm3 (4.20-5.40); Red Cell Distribution Width 18.1 % (11.5-17.5); White Blood Count 11.1 K/mm3 (4.8-10.8)
--- NOTE | 2024-03-28 10:50 | ED_ITS ---
Discharge Plan Disposition Patient Disposition: Home, Self-Care Prescriptions Prescriptions: New amoxicillin-pot clavulanate 875-125 mg tablet 1 tab PO BID 7 Days Qty: 14 0RF No Action benztropine 0.5 mg tablet 0.5 mg PO fluoxetine 20 mg capsule 20 mg PO DAILY hydroxyzine pamoate 50 mg capsule 50 mg PO ONCE cyclobenzaprine 5 mg tablet 5 mg PO DAILY nicotine 21 mg/24 hr patch 24 hour 1 patch topical DAILY quetiapine 25 mg tablet 25 mg PO DAILY benztropine 0.5 mg tablet 0.5 mg PO DAILY Referrals Follow up/Referrals: Provider,Referral, MD [Referring] - See instructions Activity Restrictions/Add. Instructions Additional Instructions/Restrictions: Call your family doctor to establish care for this visit to the emergency department and schedule follow-up within 48 hours to ensure improvement. If you have any worsening of your condition or any other concerning signs or symptoms, return to the emergency department or your primary care doctor for further evaluation. Clinical Impressions Clinical Impression: Pain, dental Print Language Print Language: Bangladeshi Discharge ED Provider: Luan Clifton General Adult HPI General Chief complaint: Dental/Oral Stated complaint: poss allergic reaction Time Seen by Provider: 03/28/24 10:41 History of Present Illness HPI narrative: Please note that above description of symptoms, in this electronic medical record under categorization of recalled from ER triage doctor by RN are reflective of an initial nursing assessment, however, is not reflective of my full history and physical exam that was personally taken and clarified. Consequentially, this preceding description of symptoms, which may include the patient's categorized chief complaint in the EMR, do not reflect my personal clinical impression, and the ultimate description of history of present illness and patient stated complaints should be deferred to this section of the note. Unless stated otherwise or congruent with this section of the note, additional signs, symptoms, or incongruence should be interpreted as inaccurate with my clinical impression. Related Data Home Medications ?Medication ?Instructions ?Recorded ?Confirmed benztropine 0.5 mg tablet 0.5 mg PO 06/29/23 06/29/23 benztropine 0.5 mg tablet 0.5 mg PO DAILY 06/29/23 06/29/23 cyclobenzaprine 5 mg tablet 5 mg PO DAILY 06/29/23 06/29/23 fluoxetine 20 mg capsule 20 mg PO DAILY 06/29/23 06/29/23 hydroxyzine pamoate 50 mg capsule 50 mg PO ONCE 06/29/23 06/29/23 nicotine 21 mg/24 hr daily 1 patch topical DAILY 06/29/23 06/29/23 transdermal patch quetiapine 25 mg tablet 25 mg PO DAILY 06/29/23 06/29/23 Previous Rx's ?Medication ?Instructions ?Recorded amoxicillin 875 mg-potassium 1 tab PO BID 7 days #14 tabs 03/28/24 clavulanate 125 mg tablet Allergies Allergy/AdvReac Type Severity Reaction Status Date / Time No Known Allergies Allergy Verified 03/28/24 10:50 [facility] Disclaimer: The information contained in this section may have been updated after the patient was seen, as this information can be updated by other users. Surgical History (Updated 06/29/23 @ 13:56 by Lori Temple) Hx of LASIK [place] teeth removed Family History (Updated 06/29/23 @ 13:57 by Lori Temple) Other Asthma Cancer Diabetes FHx: mental illness Heart attack Hypertension Kidney disease Stroke Substance abuse Social History Smoking Status: Current every day smoker tobacco type: cigarettes alcohol intake: never substance use type: denies use current occupational status: employed Travel in the last 8 weeks: None ROS Obtained: Yes All systems reviewed & no additional complaints except as documented Physical Exam General General appearance: alert and anxious (hyperventilating) Head Head exam: atraumatic and normocephalic Eye Eye exam: Present normal appearance, PERRL and EOMI ENT ENT exam: Present normal exam, normal oropharynx, mucous membranes moist and other (No evidence of tonsillitis, exudate, pharyngeal erythema, uvular deviation, palatal swelling, trismus, dental abscess, angioedema, or other abnormal gunner pharyngeal findings. Full range of motion of neck. No stridor. Tender less along middle third left mandible.) Neck Neck exam: Present normal inspection, full ROM and trachea midline; Absent tenderness, meningismus, lymphadenopathy or thyromegaly Chest Chest inspection: Present normal inspection and symmetric chest wall rise; Absent tenderness Respiratory Respiratory exam: Present normal lung sounds bilaterally; Absent respiratory distress, wheezes, stridor, accessory muscle use or prolonged expiratory phase Cardiovascular Cardiovascular exam: Present regular rate, normal rhythm and other (Pulses equal symmetric in upper and lower extremities) Abdominal Exam Abdominal exam: Present soft; Absent distention, tenderness or pulsatile mass Extremities Exam Extremities exam: Absent edema Neurological Exam Neurological exam: Present alert, oriented X3, CN II-XII intact and normal gait; Absent motor sensory deficit Skin Skin exam: Present warm and dry; Absent diaphoresis or erythema Medical Decision Making Medical Records Medical records reviewed: Yes I reviewed the patient's medical records. Dionisio Inquiry Pt receiving controlled substance: No Dionisio was queried for this patient: No Vital Signs: 03/28/24 10:44 03/28/24 10:57 03/28/24 11:00 Temperature 98.6 F Temperature Source Oral Pulse Rate 80 74 Pulse Rate [Left] 80 Respiratory Rate 21 Blood Pressure 146/93 H 154/101 H Blood Pressure [Right Arm] 148/104 H Blood Pressure Mean 116 122 Blood Pressure Mean [Right Arm] 118 Blood Pressure Source Blood Pressure Source [Right Arm] Automatic Cuff Blood Pressure Position [Right Arm] Sitting 02 Sat by Pulse Oximetry 100 100 98 Oxygen Delivery Method Room Air Room Air Room Air 03/28/24 12:00 03/28/24 13:19 03/28/24 13:32 Temperature 98.6 F Temperature Source Oral Pulse Rate 64 75 92 H Pulse Rate [Left] Respiratory Rate 21 18 Blood Pressure 148/93 H 142/85 H Blood Pressure [Right Arm] Blood Pressure Mean 117 Blood Pressure Mean [Right Arm] Blood Pressure Source Automatic Cuff Blood Pressure Source [Right Arm] Blood Pressure Position [Right Arm] 02 Sat by Pulse Oximetry 100 100 Oxygen Delivery Method Room Air Room Air Room Air Lab Data Lab Results 03/28/24 10:40: WBC 11.1 H, RBC 5.66 H, Hgb 14.9, Hct 44.0, MCV 77.8 L, MCH 26.4 L, MCHC 33.9, RDW 18.1 H, Plt Count 366, MPV 8.0, Neut % (Auto) 75.1, Lymph % (Auto) 14.8, [place] % (Auto) 7.0, Eos % (Auto) 1.3, Baso % (Auto) 1.8, Neut # (Auto) 8.4 H, Lymph # (Auto) 1.6, [place] # (Auto) 0.8, Eos # (Auto) 0.2, Baso # (Auto) 0.2, Sodium 139, Potassium 3.2 L, Chloride 109 H, Carbon Dioxide 17 L, [place] 16.2 H, BUN 6 L, Creatinine 0.80, Estimated Creat Clear 118, Estimated GFR 84, Est GFR ( Amer) 102, Glucose 102 H, Calcium 10.2, Total Bilirubin 0.8, AST 42 H, ALT 32, Alkaline Phosphatase 108, Total Protein 9.2 H, Albumin 4.9, Globulin 4.3 H, Albumin/Globulin Ratio 1.1, TSH 1.32, Thyroxine (T4) 15.6 H , HCG, Quant < 2 03/28/24 10:44: VBG pH 7.50 H, VBG pCO2 20.3 L, VBG pO2 24.4 L, VBG HCO3 15.3 L, VBG Total CO2 16.0 L, VBG O2 Saturation 53.6, VBG Base Excess -7.9 L, VBG Lactic Acid 2.6 H 03/28/24 11:19: Group A Strep Rapid Negative 03/28/24 10:40 03/28/24 10:40 Orders (Tests/Meds): ED MEDICATIONS Discontinued Medications Generic Name Dose Route Start Last Admin Trade Name Freq PRN Reason Stop Dose Admin Acetaminophen 1,000 mg 03/28/24 10:42 03/28/24 10:53 Acetaminophen 1,000mg/100ml Vial IV 03/28/24 10:43 1,000 mg ONCE ONE Administration Benzocaine/Butamben/Tetracaine HCl 1 gm 03/28/24 10:50 03/28/24 10:51 Tetracaine/Benzocaine/Butamben 56 Gm [place] TP 04/27/24 10:49 1 gm NEEDED PRN Administration Mouth Irritation Iopamidol 75 ml 03/28/24 11:58 03/28/24 11:59 Iopamidol-370 (76%);100ml Bottle IV 03/28/24 11:59 75 ml ONCE ONE Administration Ketorolac Tromethamine 15 mg 03/28/24 10:42 03/28/24 10:53 Ketorolac 30mg/Ml Vial IV 03/28/24 10:43 15 mg ONCE ONE Administration Lidocaine HCl 15 ml 03/28/24 10:42 03/28/24 10:52 Lidocaine 2% Viscous Debra 15ml Udc PO 03/28/24 10:43 15 ml ONCE ONE Administration Lidocaine HCl 15 ml 03/28/24 13:15 03/28/24 13:30 Lidocaine 2% Viscous Debra 15ml Udc PO 03/28/24 13:16 15 ml ONCE ONE Administration Sodium Chloride 10 ml 03/28/24 11:58 03/28/24 11:59 Sodium Chloride 0.9% 10ml Syr (Rad Only) IV 04/27/24 11:57 10 ml NEEDED PRN Administration Maintain IV Site ORDERS Category Date Time Status CT facial bones w con Stat Cat Scan 03/28/24 10:[address] soft tissue neck w con Stat Cat Scan 03/28/24 10:44 Completed XR chest portable Stat Exams 03/28/24 10:42 Completed Complete Blood Count Auto Diff Stat Lab 03/28/24 10:40 Completed Comprehensive Metabolic Panel Stat Lab 03/28/24 10:40 Completed HCG,Quantitative Stat Lab 03/28/24 10:40 Completed Strep Scrn Group A (Rapid) Stat Lab 03/28/24 11:19 Completed T4 (Thyroxine) Stat Lab 03/28/24 10:40 Completed TSH [Thyroid Stimulating Hormone] Stat Lab 03/28/24 10:40 Completed Strep Screen Confirmation Stat Micro 03/28/24 11:19 Received VBG [Venous Blood Gas] Stat RT 03/28/24 10:44 Completed Medical Decision Narrative: 28-year-old female presenting with facial pain and panic attack. Patient states the facial pain has been going on for couple days, got worse through today. Family brought her in today because they are worried about an allergic reaction, but patient has no new exposures including medications, close, detergents, etc. Also does not have any known allergies. Patient states she had dental work done just couple days ago, thinks this is related to this. Has never had a dental infection, however. No fevers, chills, nausea, vomiting. She states that she feels like it is impossible to catch her breath, but does not states she is having any difficulty or pain with swallowing. No pain with range of motion of neck, confusion, or any other concerns. Hemodynamically stable, alert, oriented x4, appropriate, GCS 15, moving all extremities spontaneously, pupils equal and reactive to light. Full physical exam performed and significant for extremely anxious appearing female who is in no acute distress. She is nontachycardic, normotensive, saturating 100% on room air. Lungs clear to auscultation bilaterally anterior and posteriorly, no evidence of wheezes. No stridor. Patient ranging head without issue up, down, left and right in response to questions, anxiety, etc. She is hyperventilating. No evidence of tonsillitis, exudate, pharyngeal erythema, uvular deviation, palatal swelling, trismus, dental abscess, angioedema, or other abnormal gunner pharyngeal findings. Full range of motion of neck. No stridor. Tender less along middle third left mandible. Neurologically intact. Differential includes panic attack, anxiety, periapical abscess, retropharyngeal abscess, mandibular osteomyelitis, asthma exacerbation, PE, pneumothorax, among others. Patient placed on continuous cardiac monitoring and continuous pulse ox with initial blood pressure 148/104, heart rate 80, saturation 100% on room air. Patient was given Toradol, acetaminophen, dental balls for symptomatic management and correction of underlying abnormalities. Workup independently interpreted and significant for mildly elevated leukocytosis. Patient's VBG respiratory alkalosis, most consistent with panic attack. I believe lactate of 2.6 likely from increased work of breathing. Nonactionable chemistry. hCG negative. Patient does have subclinical hyperthyroidism. Given severe pain, patient given dental balls and CT face was obtained. No obvious drainable dental abscess on my exam. No evidence of pretracheal thickening, because patient high risk for clinical decompensation, deemed appropriate for inpatient admission. Results were relayed to patient who voiced understanding and patient was agreeable to inpatient admission and management. Patient was admitted to the hospital for further definitive management. Airway closure, submental infection, obvious dental infection, or other abnormality. See radiology read for full review of final results. On reevaluation, patient states that she feels much better, not having any complaints. Asking for Augmentin for home- going for treatment of dental infection, I feel this is reasonable. CT scan pending final read at time of discharge. Because patient at baseline without signs or symptoms of clinical decompensation, deemed appropriate for discharge. Results were relayed to patient who voiced understanding and were agreeable to outpatient management and follow up. I discussed my clinical impression with patient and answered all questions. At this time, the evidence for any other entities in the differential is insufficient to warrant any further testing or ED observation. This was explained as well. Advisory was given that persistent or worsening symptoms require further evaluation. I confirmed the understanding of this discussion. Web Design Instructor disclaimer Much of this encounter note is an electronic hazmat cdl a driver spoken language to printed text. Electronic hazmat cdl a driver of the spoken language may permit errors. Although I have reviewed the note, some errors may still exist. Critical Care Critical Care Time Critical Care Time: No
[2024-03-28] MEDS: TETRACAINE/BENZOCAINE/BUTAMBEN 56 GM SPRAY TP (10:51)
[2024-03-28] MEDS: LIDOCAINE 2% VISCOUS SOL 15ML UDC 15 ML PO ×2 (10:52→13:30)
--- NOTE | 2024-03-28 10:52 | PC.NURSE ---
DENTAL BALLS APPLIED TO INSIDE MOUTH FOR DENTAL/ORAL PAIN
[2024-03-28] MEDS: ACETAMINOPHEN 1,000MG/100ML VIAL 1000 MG IV (10:53)
[2024-03-28] MEDS: KETOROLAC 30MG/ML VIAL 15 MG IV (10:53)
[2024-03-28 10:55] LABS: Alanine Aminotransferase 32 U/L (12-78); Albumin Level 4.9 g/dl (3.5-5.0); Albumin/Globulin Ratio 1.1 (1.1-1.8); Alkaline Phosphatase 108 U/L (38-126); Anion Gap 16.2 mEq/L (5-15); Aspartate Amino Transferase 42 U/L (14-36); Bilirubin,Total 0.8 mg/dl (0.2-1.3); Blood Urea Nitrogen 6 mg/dl (7-17); Calcium 10.2 mg/dl (8.4-10.2); Carbon Dioxide 17 mmol/L (22.0-30.0); Chloride 109 mmol/L (98-107); Creatinine Clearance Estimated 118 mL/min (50-200); Estimated Glomerular Filt Rate 84 ml/min (>60); GFR (African American) 102 ML/MIN (>60); Globulin 4.3 g/dL (1.3-3.2); Glucose 102 mg/dl (74-100); Potassium 3.2 mmoL/L (3.5-5.1); Sodium 139 mmol/L (136-145); Total Protein,Serum 9.2 g/dl (6.3-8.2)
[2024-03-28 10:57] VITALS: BP 146/93; PULSE 80; O2SAT 100
[2024-03-28 11:00] VITALS: BP 154/101; PULSE 74; O2SAT 98
[2024-03-28 11:13] LABS: T4 (Thyroxine) 15.6 ug/dl (5.53-11.0)
[2024-03-28 11:20] LABS: HCG,Quantitative < 2 mIU/ml (0-5.42)
[2024-03-28 11:26] LABS: Thyroid Stimulating Hormone 1.32 uIU/mL (0.465-4.68)
[2024-03-28 11:40] LABS: Strep Scrn Group A (Rapid) Negative (Negative)
[2024-03-28] MEDS: SODIUM CHLORIDE 0.9% 10ML SYR (RAD ONLY) 10 ML IV (11:59)
[2024-03-28] MEDS: IOPAMIDOL-370 (76%);100ML BOTTLE 75 ML IV (11:59)
[2024-03-28 12:00] VITALS: PULSE 64; RESP 21; O2SAT 100
--- NOTE | 2024-03-28 13:12 | PC.NURSE ---
DR PETERS AT BEDSIDE TO UPDATE PT
[2024-03-28 13:19] VITALS: BP 148/93; PULSE 75; O2SAT 100
[2024-03-28 13:32] VITALS: BP 142/85; PULSE 92; RESP 18; TEMP 37; O2SAT 99
[2024-03-28 14:50] LABS: Reflex Lactic Add Lactic Reflex
== END 2024-03-28 13:33 | disposition home or self-care (01) ==
PROVIDERS: Emergency Provider Emergency Medicine; PCP Family Medicine
DX: E87.6 Hypokalemia (principal); R06.4 Hyperventilation; F41.0 Panic disorder [episodic paroxysmal anxiety]; K08.89 Other specified disorders of teeth and supporting structures
CPT/HCPCS: 70487; 70491; 71045; 80050; 80053; 82803; 84436; 84443; 84702; 85025; 87430; 96374; 96375; 99285; J0131; J1885; Q9967

== ENCOUNTER 2024-04-19 18:41 | Outpatient (CLI) | payer OTHER, SELFPAY | END 2024-04-19 23:59 | disposition home or self-care (01) | LOC: LAB.DROPOF 18:43 | PROVIDERS: PCP Family Medicine; Visit Provider Family Medicine | DX: R30.0 Dysuria (principal) | CPT/HCPCS: 87086 ==

== ENCOUNTER 2024-08-30 13:11 | Emergency (ER) | payer OTHER, SELFPAY ==
[2024-08-30 14:44] VITALS: BP 0/0; PULSE 0; RESP 0; TEMP -17.7; TEMP 0
== END 2024-08-30 14:45 | disposition left against medical advice (07) ==
PROVIDERS: Emergency Provider Nurse Practitioner; PCP Family Medicine
DX: Z53.21 Procedure and treatment not carried out due to patient leaving prior to being seen by health care provider (principal)

== ENCOUNTER 2024-09-18 19:59 | Emergency (ER) | payer OTHER, SELFPAY ==
[2024-09-18 20:00] VITALS: BP 131/98; PULSE 85; RESP 18; TEMP 36.8; O2SAT 99; BMI 28.3
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
[2024-09-18 20:49] LABS: Microscopic, Urine URINE MICROSCOPIC (MICROSCOPIC)
[2024-09-18 20:51] LABS: Appearance,Urine CLEAR (Clear); Bilirubin,Urine Negative (Negative); Blood, Urine Negative (Negative); Color,Urine YELLOW (Yellow); Glucose,Urine (UA) Negative (Negative); Ketones,Urine Negative (Negative); Leukocyte Esterase,Urine Negative (Negative); Nitrate,Urine Negative (Negative); Protein,Urine Negative (Negative); Urobilinogen,Urine 0.2 EU/dl (0.2)
[2024-09-18 21:05] LABS: RBC,Urine Occasional #/hpf (0-3)
[2024-09-18 21:25] LABS: Basophils % 0.3 % (0.1-2.0); Eosinophils % 0.6 % (0.1-12.0); Hematocrit 41.9 % (37.0-47.0); Lymphocytes % 31.8 % (10-50); Mean Corpuscular HGB Conc 33.4 g/dL (31.8-35.4); Mean Corpuscular Hemoglobin 27.5 pg (27.0-31.2); Mean Corpuscular Volume 82.2 fl (81-99); Mean Platelet Volume 10.8 fl (7.4-10.4); Monocytes # 0.5 K/mm3 (0.1-1.0); Monocytes % 7.8 % (1.7-9.3); Neutrophils # 3.7 K/mm3 (1.8-7.8); Neutrophils % 59.3 % (37.0-80.0); Platelet Count 350 K/mm3 (142-424); Red Cell Distribution Width 12.6 % (11.5-17.5); White Blood Count 6.2 K/mm3 (4.8-10.8)
[2024-09-18 21:29] LABS: Albumin Level 4.5 g/dl (3.5-5.0); Chloride 108 mmol/L (98-107); Potassium 4.2 mmoL/L (3.5-5.1); Sodium 136 mmol/L (136-145)
[2024-09-18 21:32] LABS: Alanine Aminotransferase 22 U/L (12-78); Albumin/Globulin Ratio 1.4 (1.1-1.8); Alkaline Phosphatase 99 U/L (38-126); Anion Gap 13.2 mEq/L (5-15); Aspartate Amino Transferase 27 U/L (14-36); Bilirubin,Total 0.2 mg/dl (0.2-1.3); Blood Urea Nitrogen 5 mg/dl (7-17); Calcium 9.3 mg/dl (8.4-10.2); Carbon Dioxide 19 mmol/L (22.0-30.0); Creatinine Clearance Estimated 138 mL/min (50-200); Estimated Glomerular Filt Rate 98 ml/min (>60); GFR (African American) 118 ML/MIN (>60); Globulin 3.3 g/dL (1.3-3.2); Glucose 113 mg/dl (74-100); Total Protein,Serum 7.8 g/dl (6.3-8.2)
[2024-09-18 21:33] LABS: Acetaminophen < 10 ug/ml (10-30); Salicylate < 1.0 mg/dL (2.0-20.0)
[2024-09-18 21:40] LABS: HCG Qualitative, Serum Negative (Negative)
[2024-09-18 22:22] LABS: HIV Combo NEGATIVE (Negative)
[2024-09-18 22:30] LABS: Hepatitis C Ab Qual. W/ RFX NEGATIVE (Negative)
--- NOTE | 2024-09-18 22:42 | PC.NURSE ---
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
[2024-09-18 23:04] VITALS: BP 131/98; PULSE 85; RESP 20; TEMP 36.7; O2SAT 99
== END 2024-09-18 23:07 ==
PROVIDERS: Emergency Provider Emergency Medicine; PCP Family Medicine
DX: R45.851 Suicidal ideations (principal)
CPT/HCPCS: 80053; 80329; 81001; 84703; 85025; 86803; 87389; 99285; G0480

== ENCOUNTER 2025-06-16 11:14 | Outpatient (CLI) | payer OTHER, SELFPAY ==
[2025-06-16 17:19] LABS: Alanine Aminotransferase 15 U/L (12-78); Albumin Level 4.0 g/dl (3.5-5.0); Albumin/Globulin Ratio 1.3 (1.1-1.8); Alkaline Phosphatase 108 U/L (38-126); Anion Gap 12.5 mEq/L (5-15); Aspartate Amino Transferase 22 U/L (14-36); Bilirubin,Total 0.4 mg/dl (0.2-1.3); Blood Urea Nitrogen 8 mg/dl (7-17); Calcium 9.3 mg/dl (8.4-10.2); Carbon Dioxide 25 mmol/L (22.0-30.0); Chloride 105 mmol/L (98-107); Creatinine,Serum 0.80 mg/dl (0.52-1.04); Estimated Glomerular Filt Rate 83 ml/min (>60); GFR (African American) 101 ML/MIN (>60); Globulin 3.1 g/dL (1.3-3.2); Glucose 99 mg/dl (74-100); Potassium 4.5 mmoL/L (3.5-5.1); Sodium 138 mmol/L (136-145); Total Protein,Serum 7.1 g/dl (6.3-8.2)
--- OUTSIDE RECORDS SUMMARY | 2025-06-17 11:18 | XMS_ITS | Clinical Summary ---
Author Organization Healthcare Address [address] [place] [address] Care Team Providers Care Die Mounter Name Role Phone Pcp, No Primary Care Provider Unavailabl e Allergies No known active allergies Medications mirtazapine (Remeron) 7.5 MG tablet Take 1 tablet (7.5 mg) by mouth every night. 30 tablet 09/19/2024 Active Active Problems Problem Noted Date Diagnosed Date Suicidal ideation 09/19/2024 Social History Tobacco Use Types Packs/Day Years Used Date Smoking Tobacco: Every Day Cigarettes Smokeless Tobacco: Current Tobacco Cessation:Ready to Q uit: Not Asked; Counseling Given: Not Answered Comments:Vapes intermittently throughout the day PHQ-2 Answer Date Recorded Patient Health Questionnaire-2 Score 6 09/19/2024 PHQ-9 Answer Date Recorded Patient Health Questionnaire-9 Score 23 09/19/2024 Comments Unknown Sex and Gender Information Value Date Recorded Sex Assigned at Female 09/19/2024 10:42 AM EST Legal Sex Female 9:39 PM EST Gender Identity Not on file Sexual Orientation Not on file Last Filed Vital Signs Vital Sign Reading Time Taken Comments Blood Pressure 118/84 09/19/2024 12:23 AM EST Pulse 75 09/19/2024 12:23 AM EST Temperature 36.4 C (97.5 F) 09/19/2024 12:23 AM EST Respiratory Rate 18 09/19/2024 12:24 AM EST Oxygen Saturation 99% 09/19/2024 12:23 AM EST Inhaled Oxygen Concentration - - Weight 74.8 kg (165 lb) 09/19/2024 12:24 AM EST Height 162.6 cm (5' 4 ) 09/19/2024 12:24 AM EST Body Mass Index 28.32 09/19/2024 12:24 AM EST Plan of Treatment Not on file Insurance [employer] Care Teams Die Mounter Relationship Specialty Start Date End Date Pcp, [place] [address] PCP - General Family Medicine 09/19/24
== END 2025-06-16 23:59 ==
LOC: LAB.DROPOF 06-17 11:15
PROVIDERS: PCP Family Medicine; Visit Provider Family Medicine
DX: F41.9 Anxiety disorder, unspecified (principal); F32.A Depression, unspecified; F90.9 Attention-deficit hyperactivity disorder, unspecified type; F43.10 Post-traumatic stress disorder, unspecified; K08.89 Other specified disorders of teeth and supporting structures
CPT/HCPCS: 80053